=== PATIENT | male | born 1930 | race Caucasian/White ===

== ENCOUNTER 2016-07-11 13:11 | Emergency (ER) | payer OTHER ==
[2016-05-12 11:06] VITALS: Ht 170.2 cm; Wt 70.3 kg
[~2016-07-11] VITALS: Ht 170.2 cm; Wt 70.3 kg
[~2016-07-11 13:11] MED LIST: ASPI-1063 PO; FURO-150 PO; GABA-531 PO; IPRA4AER INH; LIP20 PO; LOP600 PO; POLY17PO4 PO; POTA-118 PO; TRAM50TA92 PO
--- NOTE | 2016-07-11 13:11 | NUR ---
Placed in room 02 . Placed on cardiac cath lab technologist, blood pressure machine and pulse oximeter. To gown for exam. Side rails up. Report given to Lalo.
--- NOTE | 2016-07-11 13:13 | NUR ---
ER at bedside examining patient.
[2016-07-11 13:16] VITALS: BP 127/75; PULSE 88; RESP 18; TEMP 97.8; O2SAT 95
--- NOTE | 2016-07-11 13:20 | NUR ---
Pt c/o L shoulder and L hip 10/13. Pt denies syncope prior to fall.
[2016-07-11] MEDS ORDERED: DESI10TA3 PO (13:27)
[2016-07-11] MEDS ORDERED: MONT10TA25 PO (13:27)
[2016-07-11] MEDS ORDERED: IPRA3AMP9 INH (13:27)
[2016-07-11] MEDS ORDERED: LOPE2CAP PO (13:27)
[2016-07-11] MEDS ORDERED: POLY17PO4 PO (13:27)
[2016-07-11] MEDS ORDERED: DULR10 RC (13:27)
[2016-07-11] MEDS ORDERED: SENN-153 PO (13:27)
[2016-07-11] MEDS ORDERED: PROC10TA PO (13:27)
[2016-07-11] MEDS ORDERED: ACET-2165 PO (13:27)
--- NOTE | 2016-07-11 13:27 | NUR ---
Medication reconciliation completed with information provided by paperwork provided by [facility]. Any prior medication reconciliation on file was reviewed and corrected.
--- NOTE | 2016-07-11 14:39 | NUR ---
Pt resting quietly, even and non-labored respirations, no needs verbalized at this time.
[2016-07-11 16:00] VITALS: BP 127/76; PULSE 91; RESP 20; TEMP 97.9; O2SAT 96
--- NOTE | 2016-07-11 16:00 | NUR ---
Patient given written and verbal discharge instructions and verbalizes understanding. ER MD discussed with patient the results and treatment provided. Patient in stable condition. ID arm band removed. IV catheter removed intact and dressing applied, no active bleeding. Patient educated on pain management and to follow up with PMD. Pain Scale 0/10. Opportunity for questions provided and answered. Pt leaves in c/o [facility] transport back to [facility]. Report called.
== END 2016-07-11 16:00 | disposition home or self-care (01) ==
LOC: SED 13:11
DX: S43.402A Unspecified sprain of left shoulder joint, initial encounter (principal); S70.02XA Contusion of left hip, initial encounter; S09.90XA Unspecified injury of head, initial encounter; I10 Essential (primary) hypertension; J44.9 Chronic obstructive pulmonary disease, unspecified; I25.10 Atherosclerotic heart disease of native coronary artery without angina pectoris; Z88.1 Allergy status to other antibiotic agents; W01.10XA Fall on same level from slipping, tripping and stumbling with subsequent striking against unspecified object, initial encounter; Y93.89 Activity, other specified; Y99.8 Other external cause status; Y92.89 Other specified places as the place of occurrence of the external cause
CPT/HCPCS: 70450-TC; 73030; 73510-TC; 99284